=== PATIENT | male | born 1935 | race African-American/Black ===

== ENCOUNTER → 2017-05-01 | Outpatient (CLI) | payer MEDICARE, OTHER ==
[~2017-05-01] MED LIST: AMLO10TA4 PO; ASPI325T8 PO; CARV6.25 PO; TERA2CAP3 PO; [UNRECOGNIZED DRUG - CODE] PO
--- NOTE | 2017-05-01 16:22 | RAD ---
Renal ultrasound 05/01/2017 Clinical history: Chronic kidney disease. Technique: A real-time ultrasound examination of both kidneys and the urinary bladder was performed. Multiple images were obtained. Findings: Both kidneys are within normal limits in size. The right kidney measures 9.8 cm in length. The left kidney measures 9.1 cm in length. Several simple cysts are seen scattered throughout both kidneys, right greater than left. These measure 1 cm to 1.8 cm in size. There is no evidence of hydronephrosis. No renal calculus is seen. The urinary bladder is distended with urine. No abnormality is seen. Impression: Essentially negative study.
== END | disposition home or self-care (01) ==
LOC: US 15:05
PROVIDERS: ATTEND Internal Medicine Nephrology
DX: N18.3 Chronic kidney disease, stage 3 (moderate) (principal); N28.1 Cyst of kidney, acquired
CPT/HCPCS: 76770

== ENCOUNTER 2017-09-14 09:09 | Emergency (ER) | payer MEDICARE, OTHER ==
--- NOTE | 2017-09-14 09:38 | RAD ---
CT head without contrast 09/14/2017 Clinical indication: Code stroke. Comparison: None. Technique: Multiple CT images of the head were obtained without contrast. PQRS Compliance Statement: One or more of the following individualized dose reduction techniques were utilized for this examination: 1. Automated exposure control 2. Adjustment of the mA and/or kV according to patient size 3. Use of iterative reconstruction technique Findings: Small high right frontal cortical and subcortical hypodensity in the superior right frontal gyrus series 2/image 24. Additional cortical and subcortical hypodensity anterior-inferior right frontal lobe series 2/image 10. No midline shift. The basal cisterns are patent. No acute intracranial hemorrhage or extra-axial fluid collection. There is mild probably deep white matter low attenuation. There is mild prominence of the ventricles and subarachnoid spaces compatible with mild generalized cerebral atrophy. The mastoid air cells and visualized paranasal sinuses are well aerated. Impression: 1. High right frontal and anterior-inferior right frontal cortical/subcortical hypodensity may represent age-indeterminate acute to subacute infarct. 2. No acute intracranial hemorrhage. 3. Mild generalized cerebral atrophy and nonspecific white matter disease, likely related to chronic small vessel ischemia. These results were discussed with Dr. Feliciano of the emergency service by telephone at 9:30 AM 09/14/[address] Brady Huerta.
--- NOTE | 2017-09-14 10:12 | PHYS DOC ---
Past History Past Medical History: High Cholesterol, Hypotension, Other Additional Past Medical Histor: BPH Additional Past Surgical Histo: unknown Adult General Chief Complaint Chief Complaint: NEURO SYMPTOMS/DEFICITS HPI HPI Patient is a 82 year old M who presents with new neurologic deficits. Clovis is not verbal at this time and seems to have right-sided deficits. He is not following commands at this time. His last known normal was last night. He does have aspirin in his medication lists aunts unclear whether he has taken his medications this morning. Review of Systems Review of Systems Unable to obtain due to current medical condition Family History Family History No pertinent family medical history was reported Current Medications Current Medications Current medications were reviewed Allergies Allergies Allergies Coded Allergies Type Severity Reaction Last Updated Verified No Known Drug Allergies 09/12/13 No Physical Exam Physical Exam Constitutional: Well developed, well nourished, mild increased work of breathing HENT: Normocephalic, atraumatic, Eyes: PERRLA, EOMI, conjunctiva normal, no discharge. [] Neck: Trachea was midline no lymphadenopathy was noted Cardiovascular:Heart rate regular rhythm, Lungs & Thorax: Bilateral breath sounds clear to auscultation [] Abdomen: Bowel sounds normal, soft, no tenderness, no masses, no pulsatile masses. [] Skin: Warm, dry, no erythema, no rash. [] Extremities: Limited exam due to current condition. Right arm held against side and slightly bent. No voluntary movement of the right upper or lower extremity right upper and lower extremity muscle contraction noted Neurologic: Nonverbal. Limited evaluation as patient will not follow commands Psychologic: Limited evaluation due to current condition Current Patient Data Vital Signs Normal vital signs. Please review nursing documentation for specifics EKG EKG Unclear rhythm. likely sinus beats are noted with junctional escape beats versus premature junctional beats. QRS interval normal with no ST segment changes noted Radiology/Procedures Radiology/Procedures Administer stroke scale items in the order listed. Record performance in each category after each subscale exam. Do not go back and change scores. Follow directions provided for each exam technique. Scores should reflect what the patient does, not what the clinician thinks the patient can do. The clinician should record answers while administering the exam and work quickly. Except where indicated, the patient should not be coached (i.e., repeated requests to patient to make a special effort). 1a. Level of Consciousness: The insurance application investigator must choose a response if a full evaluation is prevented by such obstacles as an endotracheal tube, language barrier, orotracheal trauma/bandages. A 3 is scored only if the patient makes no movement (other than reflexive posturing) in response to noxious stimulation. 2 1b. LOC Questions: The patient is asked the month and his/her age. The answer must be correct - there is no partial credit for being close. Aphasic and stuporous patients who do not comprehend the questions will score 2. Patients unable to speak because of endotracheal intubation, orotracheal trauma, severe dysarthria from any cause, language barrier, or any other problem not secondary to aphasia are given a 1. It is important that only the initial answer be graded and that the examiner not "help" the patient with verbal or non-verbal cues. 2 = Answers neither question correctly. 1c. LOC Commands: The patient is asked to open and close the eyes and then to mine engineer and release the non-paretic hand. Substitute another one step command if the hands cannot be used. Credit is given if an unequivocal attempt is made but not completed due to weakness. If the patient does not respond to command, the task should be demonstrated to him or her (pantomime), and the result scored (i.e., follows none, one or two commands). Patients with trauma, amputation, or other physical impediments should be given suitable one-step commands. Only the first attempt is scored. 2 = Performs neither task correctly. 2. Best Gaze: Only horizontal eye movements will be tested. Voluntary or reflexive (oculocephalic) eye movements will be scored, but caloric testing is not done. If the patient has a conjugate deviation of the eyes that can be overcome by voluntary or reflexive activity, the score will be 1. If a patient has an isolated peripheral nerve paresis (CN III, IV or ), score a 1. Gaze is testable in all aphasic patients. Patients with ocular trauma, bandages, pre-existing blindness, or other disorder of visual acuity or cheema should be tested with reflexive movements, and a choice made by the insurance application investigator. Establishing eye contact and then moving about the patient from side to side will occasionally clarify the presence of a partial gaze palsy. 2 = Forced deviation, or total gaze paresis not overcome by the oculocephalic maneuver. 3. Visual: Visual cheema (upper and lower quadrants) are tested by confrontation, using finger counting or visual threat, as appropriate. Patients may be encouraged, but if they look at the side of the moving fingers appropriately, this can be scored as normal. If there is unilateral blindness or enucleation, visual cheema in the remaining eye are scored. Score 1 only if a clear-cut asymmetry, including quadrantanopia, is found. If patient is blind from any cause, score 3. Double simultaneous stimulation is performed at this point. If there is extinction, patient receives a 1, and the results are used to respond to item 11. 3 = Bilateral hemianopia (blind including cortical blindness). 4. Facial Palsy: Ask - or use pantomime to encourage - the patient to show teeth or raise eyebrows and close eyes. Score symmetry of grimace in response to noxious stimuli in the poorly responsive or non-comprehending patient. If facial trauma/bandages, orotracheal tube, tape or other physical barriers obscure the face, these should be removed to the extent possible. 2 = Partial paralysis (total or near-total paralysis of lower face). 5. Motor Arm: The limb is placed in the appropriate position: extend the arms (palms down) 90 degrees (if sitting) or 45 degrees (if supine). Drift is scored if the arm falls before 10 seconds. The aphasic patient is encouraged using urgency in the voice and pantomime, but not noxious stimulation. Each limb is tested in turn, beginning with the non-paretic arm. Only in the case of amputation or joint fusion at the shoulder, the examiner should record the score as untestable (UN), and clearly write the explanation for this choice. 5a. Left Arm 3 = No effort against gravity; limb falls. 5b. Right Arm 3 = No effort against gravity; limb falls. 6. Motor Leg: The limb is placed in the appropriate position: hold the leg at 30 degrees (always tested supine). Drift is scored if the leg falls before 5 seconds. The aphasic patient is encouraged using urgency in the voice and pantomime, but not noxious stimulation. Each limb is tested in turn, beginning with the non-paretic leg. Only in the case of amputation or joint fusion at the hip, the examiner should record the score as untestable (UN), and clearly write the explanation for this choice. 6a. Left Leg 3 = No effort against gravity; leg falls to bed immediately. 6b. Right Leg 3 = No effort against gravity; leg falls to bed immediately. 7. Limb Ataxia: This item is aimed at finding evidence of a unilateral cerebellar lesion. Test with eyes open. In case of visual defect, ensure testing is done in intact visual field. The vgfzqg-vygf-tewrox and heel-aguiar tests are performed on both sides, and ataxia is scored only if present out of proportion to weakness. Ataxia is absent in the patient who cannot understand or is paralyzed. Only in the case of amputation or joint fusion, the examiner should record the score as untestable (UN), and clearly write the explanation for this choice. In case of blindness, test by having the patient touch nose from extended arm position. 2 = Present in two limbs. 8. Sensory: Sensation or grimace to pinprick when tested, or withdrawal from noxious stimulus in the obtunded or aphasic patient. Only sensory loss attributed to stroke is scored as abnormal and the examiner should test as many body areas (arms [not hands], legs, trunk, face) as needed to accurately check for hemisensory loss. A score of 2, "severe or total sensory loss," should only be given when a severe or total loss of sensation can be clearly demonstrated. Stuporous and aphasic patients will, therefore, probably score 1 or 0. The patient with brainstem stroke who has bilateral loss of sensation is scored 2. If the patient does not respond and is quadriplegic, score 2. Patients in a coma (item 1a=3) are automatically given a 2 on this item. 2 = Severe to total sensory loss; patient is not aware of being touched in the face, arm, and leg. 9. Best Language: A great deal of information about comprehension will be obtained during the preceding sections of the examination. For this scale item, the patient is asked to describe what is happening in the attached picture, to name the items on the attached naming sheet and to read from the attached list of sentences. Comprehension is judged from responses here, as well as to all of the commands in the preceding general neurological exam. If visual loss interferes with the tests, ask the patient to identify objects placed in the hand, repeat, and produce speech. The intubated patient should be asked to write. The patient in a coma (item 1a=3) will automatically score 3 on this item. The examiner must choose a score for the patient with stupor or limited cooperation, but a score of 3 should be used only if the patient is mute and follows no one-step commands. 3 = Mute, global aphasia; no usable speech or auditory comprehension. 10. Dysarthria: If patient is thought to be normal, an adequate sample of speech must be obtained by asking patient to read or repeat words from the attached list. If the patient has severe aphasia, the clarity of articulation of spontaneous speech can be rated. Only if the patient is intubated or has other physical barriers to producing speech, the examiner should record the score as untestable (UN), and clearly write an explanation for this choice. Do not tell the patient why he or she is being tested. 2 = Severe dysarthria; patient's speech is so slurred as to be unintelligible in the absence of or out of proportion to any dysphasia, or is mute/anarthric. 11. Extinction and Inattention (formerly Neglect): Sufficient information to identify neglect may be obtained during the prior testing. If the patient has a severe visual loss preventing visual double simultaneous stimulation, and the cutaneous stimuli are normal, the score is normal. If the patient has aphasia but does appear to attend to both sides, the score is normal. The presence of visual spatial neglect or anosagnosia may also be taken as evidence of abnormality. Since the abnormality is scored only if present, the item is never untestable. 2 = Profound kristin-inattention or extinction to more than one modality; does not recognize own hand or orients to only one side of space. Course & Med Decision Making Course & Med Decision Making Pertinent Labs and Imaging studies reviewed. (See chart for details) [] Dragon Disclaimer Dragon Disclaimer This electronic medical record was generated, in whole or in part, using a voice recognition dictation system. Departure Departure: Impression: Primary Impression: Stroke Disposition: XFER OTHER Condition: GUARDED Referrals: YOEL BARNES MD (PCP) Problem Qualifiers Primary Impression: Stroke CVA mechanism: unspecified Qualified Codes: I63.9 - Cerebral infarction, unspecified FRANKLIN BURTON MD Sep 14, 2017 10:12
--- NOTE | 2017-09-14 12:00 | EKG ---
[address] [address] Test Date: 2017-09-14 Test Time: 09:24:58 Pat Name: WENDY JEAN BAPTISTE Department: Room: Gender: M Culturist: MAYKEL : 1935 Requested By: FRANKLIN BURTON Order Number: [id number] Reading MD: Todd Brizuela Measurements Intervals [place] Rate: 65 P: NV: QRS: 45 QRSD: 74 T: 29 QT: 390 QTc: 406 Interpretive Statements SINUS RHYTHM MOBITZ TYPE 1 SECOND DEGREE AVB Electronically Signed On 09-15-2017 16:48:45 HOME C[employer] MUSIC THERAPIST by Todd Brizuela
[2017-09-14 18:14] VITALS: BP 138/76
== END 2017-09-14 11:10 | disposition short-term general hospital (02) ==
LOC: ER 09:09
DX: I63.9 Cerebral infarction, unspecified (principal); E78.00 Pure hypercholesterolemia, unspecified; N40.0 Benign prostatic hyperplasia without lower urinary tract symptoms
CPT/HCPCS: 70450; 93005; 99285